=== PATIENT | female | born 1960 | race Caucasian/White ===

== ENCOUNTER 2018-09-25 22:23 | Outpatient (CLI) | END 2018-09-25 22:41 | disposition short-term general hospital (02) | LOC: AMBL 22:23 | PROVIDERS: ATTEND Family Medicine | DX: R50.9 Fever, unspecified (principal); R53.1 Weakness; I95.9 Hypotension, unspecified; R00.0 Tachycardia, unspecified; R42 Dizziness and giddiness; R61 Generalized hyperhidrosis ==